=== PATIENT | male | born 1960 | race Caucasian/White ===

== ENCOUNTER 2018-11-09 17:51 | Emergency (ER) | payer OTHER | END 2018-11-10 04:42 | disposition home or self-care (01) | LOC: E/R 11-10 04:42 | DX: S40.011A Contusion of right shoulder, initial encounter (principal); S70.11XA Contusion of right thigh, initial encounter; S70.01XA Contusion of right hip, initial encounter; F10.920 Alcohol use, unspecified with intoxication, uncomplicated; V03.10XA Pedestrian on foot injured in collision with car, pick-up truck or van in traffic accident, initial encounter | CPT/HCPCS: 70450; 73030-RT; 73510; 99284-25 ==

== ENCOUNTER 2018-11-10 09:44 | Emergency (ER) | payer OTHER | END 2018-11-10 16:20 | disposition home or self-care (01) | LOC: E/R 16:20 | DX: F10.920 Alcohol use, unspecified with intoxication, uncomplicated (principal) | CPT/HCPCS: 82962; 99282 ==

== ENCOUNTER 2018-11-11 09:09 | Emergency (ER) | payer OTHER ==
[2018-11-11] MEDS: KETOROLAC 30 MG INJ IM (10:06)
== END 2018-11-11 12:37 | disposition home or self-care (01) ==
LOC: E/R 09:09
DX: F10.920 Alcohol use, unspecified with intoxication, uncomplicated (principal)
CPT/HCPCS: 96372; 99284-25

== ENCOUNTER 2018-11-11 15:51 | Emergency (ER) | payer OTHER | END 2018-11-11 21:14 | disposition home or self-care (01) | LOC: E/R 15:51 | DX: F10.920 Alcohol use, unspecified with intoxication, uncomplicated (principal) | CPT/HCPCS: 99282; Z7502 ==

== ENCOUNTER 2018-11-12 01:12 | Emergency (ER) | payer OTHER | END 2018-11-12 08:17 | disposition home or self-care (01) | LOC: E/R 01:12 | DX: F10.920 Alcohol use, unspecified with intoxication, uncomplicated (principal) | CPT/HCPCS: 99282; Z7502 ==

== ENCOUNTER 2018-11-12 12:27 | Emergency (ER) | payer OTHER ==
[2018-11-12] MEDS: OLANZAPINE 10 MG VIAL IM (16:33)
== END 2018-11-13 05:19 | disposition home or self-care (01) ==
LOC: E/R 11-13 05:19
DX: F10.920 Alcohol use, unspecified with intoxication, uncomplicated (principal); R40.2142 Coma scale, eyes open, spontaneous, at arrival to emergency department; R40.2362 Coma scale, best motor response, obeys commands, at arrival to emergency department; R40.2252 Coma scale, best verbal response, oriented, at arrival to emergency department; R94.02 Abnormal brain scan; Z59.0 Homelessness
CPT/HCPCS: 70450; 96372; 99285-25